=== PATIENT | male | born 1985 | race Two or more races ===

== ENCOUNTER 2019-07-05 12:55 | Inpatient (IN) | payer MEDICAID ==
[~2019-07-05] VITALS: Ht 170.2 cm; Wt 106.0 kg
[2019-07-05 14:03] LABS: Basophils # (auto) 0 uL; Basophils % (auto) 0.6 % (0.0-2.0); Eosinophils # (auto) 0.1 uL; Hematocrit 47.2 % (41.0-53.0); Hemoglobin 15.8 g/dL (13.5-17.5); Lymphocytes # (auto) 1.1 uL; Lymphocytes % (auto) 19.8 % (10.0-50.0); Mean Corpuscular Hemoglobin 29.1 pg (28.0-32.0); Mean Corpuscular Hgb Conc. 33.5 g/dL (32.0-36.0); Mean Corpuscular Volume 86.8 fL (80.0-100.0); Monocytes # (auto) 0.5 uL; Monocytes % (auto) 8.6 % (0.0-12.0); Neutrophils # (auto) 3.9 uL; Platelet Count (auto) 251 10^3/uL (140-450); Red Blood Cells 5.43 10^6/uL (4.5-5.90); Red Cell Distribution Width 13.5 % (11.8-14.3); White Blood Cell 5.6 10^3/uL (4.4-10.8)
[2019-07-05 14:21] LABS: Alanine Aminotransferase 52 U/L (16-61); Anion Gap 10 (5-15); Aspartate Aminotransferase 31 U/L (15-37); BUN/Creatinine Ratio 14.3; Blood Urea Nitrogen 14 mg/dL (7-18); Calcium 8.9 mg/dL (8.5-10.1); Carbon Dioxide 26 mmol/L (21-32); Chloride 103 mmol/L (98-107); GFR African American 113 mL/min; GFR Non-African American 94 mL/min; Glucose 93 mg/dL (74-106); Potassium 4.1 mmol/L (3.5-5.1); Sodium 139 mmol/L (136-145)
[2019-07-05 14:28] LABS: Alkaline Phosphatase 66 U/L (45-117); Bilirubin, Total 0.5 mg/dL (0.2-1.0); Total Protein 8.2 g/dL (6.4-8.2)
[2019-07-05 17:48] LABS: Urine Bacteria NONE SEEN /hpf (None Seen); Urine Blood 1+ /uL (Negative); Urine Hyaline Cast FEW /lpf (0 - 2); Urine Mucus FEW (None Seen); Urine WBC 1 /hpf (0 - 3)
[2019-07-05 18:01] LABS: Alcohol, Urine < 3.0 mg/dL (0-5); Amphetamine Screen, Urine NEGATIVE (NEGATIVE); Barbiturate Scree,Urine NEGATIVE (NEGATIVE); Benzodiazephine Screen, Urine NEGATIVE (NEGATIVE); Cannabinoid Screen, Urine NEGATIVE (NEGATIVE); Cocaine Screen, Urine NEGATIVE (NEGATIVE); Opiate Scree,Urine NEGATIVE (NEGATIVE); Phencyclidine Screen, Urine NEGATIVE (NEGATIVE)
[2019-07-05] MEDS ORDERED: ASPirin 81 mg TAB PO ONE (19:45)
[2019-07-05] MEDS ORDERED: ACETAMINOPHEN 325 MG TAB PO PRN (22:00)
[2019-07-05] MEDS ORDERED: TEMAZEPAM 15 MG CAP PO PRN (22:00)
[2019-07-05] MEDS ORDERED: ONDANSETRON HCL 4 MG/2 ML VIAL IV PRN (22:00)
[2019-07-05] MEDS ORDERED: MORPHINE SULF INJ 2 MG/ML SYRINGE 1ML IV PRN (22:15)
[2019-07-05] MEDS ORDERED: NITROGLYCERIN 0.4 MG SL TAB SL PRN (22:15)
[2019-07-05 22:23] LABS: INR 1.05 (0.9-1.15); Partial Thromboplastin Time 25.9 sec (23.64-32.05)
[2019-07-05 22:46] LABS: Cholesterol 187 mg/dL (< 200); HDL Cholesterol 65 mg/dL (40-59); LDL Cholesterol 91 mg/dL (< 100); Triglycerides 219 mg/dL (< 150)
[2019-07-05 23:00] VITALS: BP 128/75
--- NOTE | 2019-07-05 23:00 | NUR ---
Telemetry admit from ER ERNIE MACIEL admitted to Telemetry unit. Patient oriented to ROLF DEL CID RN primary RN, unit, room, bed, and unit policies regarding patient care and visiting hours. Patient now on continuous telemetry monitoring, tele box #16 and telemetry reading on arrival to unit is Sinus rhythm at 98bpm. Weighed by bedscale and encouraged to call if they need something. All questions and concerns addressed, patient verbalized understanding.
[2019-07-05] MEDS: FAMOTIDINE 20 MG TAB PO SCH (23:35)
[2019-07-06] MEDS ORDERED: ALBUAER3 IN (00:11)
[2019-07-06 05:00] VITALS: BP 126/90
--- NOTE | 2019-07-06 07:19 | NUR ---
Endorsed care to day shift RN. Patient in bed asleep with no signs of distress.
[2019-07-06 07:53] LABS: Potassium 3.9 mmol/L (3.5-5.1)
[2019-07-06 07:56] LABS: BUN/Creatinine Ratio 21.7
[2019-07-06 08:00] VITALS: BP 131/86
--- NOTE | 2019-07-06 08:00 | NUR ---
Opening Shift Note Assumed care of patient, awake, alert and orientedx4. No S/S of distress/SOB. No c/o chest pain. Patient states " i have been feeling palpitations, but no pain and no dizziness". Bed at lowest locked position and call light within reach. Instructed on POC and to call for assist PRN, will continue to monitor for changes Q1hr and PRN.
[2019-07-06 09:00] VITALS: BP 131/86
[2019-07-06] MEDS: FAMOTIDINE 20 MG TAB PO SCH ×2 (09:04→22:15)
[2019-07-06] MEDS: ASPirin 81 mg TAB PO SCH (09:05)
[2019-07-06 13:00] VITALS: BP 148/91
[2019-07-06] MEDS: METOPROLOL TARTRATE 25 MG TAB PO SCH ×2 (13:48→22:15)
--- NOTE | 2019-07-06 16:35 | NUR ---
Patient c/o mild headache, rates it 5/10. Will medicate per MD orders.
[2019-07-06 17:00] VITALS: BP 135/72
--- NOTE | 2019-07-06 18:37 | NUR ---
closing note Patient is comfortably sitting up in bed, no s/s of distress/sob noted/stated. Bed at lowest locked position, side rails up x2 and call light within reach. Will endorse care to NOC RN.
[2019-07-06 21:39] VITALS: BP 119/75
[2019-07-07 05:12] VITALS: BP 108/74
[2019-07-07 07:39] LABS: Potassium 4.9 mmol/L (3.5-5.1)
--- NOTE | 2019-07-07 07:45 | NUR ---
Opening Shift Note Assumed care of patient, awake and alert. No S/S of distress/SOB or pain. Bed at lowest locked position and call light within reach . Instructed on POC and to call for assist PRN, will continue to monitor for changes Q1hr and PRN.
[2019-07-07 07:47] LABS: Albumin 3.6 g/dL (3.4-5.0); BUN/Creatinine Ratio 17.8; Bilirubin, Total 0.6 mg/dL (0.2-1.0); Total Protein 7.4 g/dL (6.4-8.2)
[2019-07-07 08:00] VITALS: BP 126/69
[2019-07-07 09:00] VITALS: BP 126/69
[2019-07-07] MEDS: METOPROLOL TARTRATE 25 MG TAB PO SCH (09:52)
[2019-07-07] MEDS: ASPirin 81 mg TAB PO SCH (09:52)
[2019-07-07] MEDS: FAMOTIDINE 20 MG TAB PO SCH (09:52)
[2019-07-07 11:36] VITALS: BP 126/69
--- NOTE | 2019-07-07 12:04 | NUR ---
Discharge instructions given as ordered. Encourage to follow up with PMD as instructed. All questions and concerns addressed. Patient verbalized understanding. Medication reconciliation form completed and copy given to patient. IV removed with catheter intact, pressure dressing applied, Telemetry unit returned to ICU. Patient ambulated to vehicle with all personal belongings, accompanied by staff and family member. No distress noted at time of departure.
== END 2019-07-07 12:15 | disposition home or self-care (01) | DRG 201 ==
LOC: ER 13:02 → TELE-EAST 13:03
PROVIDERS: ADMIT Nurse Practitioner; ATTEND Internal Medicine
DX: I49.3 Ventricular premature depolarization (principal); E66.9 Obesity, unspecified; R94.6 Abnormal results of thyroid function studies; J45.909 Unspecified asthma, uncomplicated; Z82.49 Family history of ischemic heart disease and other diseases of the circulatory system; Z82.5 Family history of asthma and other chronic lower respiratory diseases; Z83.3 Family history of diabetes mellitus; Z88.0 Allergy status to penicillin; Z90.49 Acquired absence of other specified parts of digestive tract; Z68.36 Body mass index [BMI] 36.0-36.9, adult; Z79.899 Other long term (current) drug therapy
CPT/HCPCS: 36415; 71046; 80048; 80053; 80061; 80307; 81001; 83735; 83880; 84443; 84484; 85025; 85379; 85610; 85730; 93005; 93306; G0378

== ENCOUNTER 2023-04-20 11:04 | Inpatient (IN) | payer MEDICAID ==
[~2023-04-20] VITALS: Ht 175.3 cm; Wt 108.5 kg
[~2023-04-20 11:04] MED LIST: ALBUAER3 IN
[2023-04-20 11:55] LABS: Basophils # (auto) 0.1 10 ^3/uL (0-0.2); Eosinophils # (auto) 0 10 ^3/uL (0-0.8); Hemoglobin 15.8 g/dL (13.5-17.5); Mean Corpuscular Hgb Conc. 33.8 g/dL (32.0-36.0); Nucleated Red Blood Cells % 0.1 %
[2023-04-20 12:19] LABS: Basophils % (auto) 0.6 % (0.0-2.0); Eosinophils % (auto) 0.2 % (0.0-7.0); Hematocrit 46.8 % (41.0-53.0); Lymphocytes # (auto) 0.8 10 ^3/uL (0.4-5.4); Lymphocytes % (auto) 8.2 % (10.0-50.0); Mean Corpuscular Hemoglobin 30.3 pg (28.0-32.0); Mean Corpuscular Volume 89.7 fL (80.0-100.0); Monocytes % (auto) 11.1 % (0.0-12.0); Neutrophils # (auto) 7.5 10 ^3/uL (1.6-8.6); Neutrophils % (auto) 79.9 % (37.0-80.0); Red Blood Cells 5.21 10^6/uL (4.5-5.90); Red Cell Distribution Width 13.4 % (11.8-14.3); White Blood Cell 9.4 10^3/uL (4.4-10.8)
[2023-04-20 12:22] LABS: Alanine Aminotransferase 271 U/L (7-40); Albumin 4.7 g/dL (3.2-4.8); Alkaline Phosphatase 83 U/L (46-116); Anion Gap 14 (5-15); Aspartate Aminotransferase 187 U/L (13-40); BUN/Creatinine Ratio 7.6 (10.0-20.0); Bilirubin, Total 1.1 mg/dL (0.2-1.0); Blood Urea Nitrogen 7 mg/dL (9-23); Calcium 9.4 mg/dL (8.7-10.4); Carbon Dioxide 24 mmol/L (20-30); Chloride 98 mmol/L (98-107); Glucose 95 mg/dL (74-106); Lipase 47 U/L (12-53); Sodium 136 mmol/L (136-145); Total Protein 8.3 g/dL (5.7-8.2)
[2023-04-20] MEDS ORDERED: LORazepam 0.5 MG TAB PO ONE (13:15)
[2023-04-20] MEDS ORDERED: POTASSIUM EFFERVESENT TAB 25 MEQ PO ONE (17:15)
[2023-04-20] MEDS ORDERED: IBUPROFEN 600 MG TAB PO ONE (17:15)
[2023-04-20] MEDS ORDERED: levoFLOXacin 500MG 100 ML IV ONE (17:30)
[2023-04-20] MEDS ORDERED: metroNIDAZOLE 500MG/100ML 100 ML IV ONE (17:30)
[2023-04-20] MEDS ORDERED: HYDROcodone-ACET 5/325MG TAB PO PRN (17:45)
[2023-04-20] MEDS ORDERED: TEMAZEPAM 15 MG CAP PO PRN (17:45)
[2023-04-20] MEDS ORDERED: MORPHINE SULFATE INJ 2 MG/ml SYRG IV PRN (17:45)
[2023-04-20] MEDS ORDERED: NITROGLYCERIN 0.4 MG SL TAB SL PRN (17:45)
[2023-04-20] MEDS ORDERED: ACETAMINOPHEN 325 MG TAB PO PRN (17:45)
[2023-04-20] MEDS: metroNIDAZOLE 500MG/100ML 100 ML IV SCH (23:02)
[2023-04-20] MEDS: MORPHINE SULFATE INJ 2 MG/ml SYRG IV PRN (23:03)
[2023-04-20] MEDS: ONDANSETRON HCL 4 MG/2 ML VIAL IV PRN (23:03)
[2023-04-21] MEDS: SODIUM CHLORIDE 0.9% 1,000 ML IV SCH ×4 (00:04→19:04)
[2023-04-21] MEDS: ENOXAPARIN SOD 40 MG/0.4 ML SYRINGE SC SCH ×2 (00:12→13:11)
[2023-04-21] MEDS: MORPHINE SULFATE INJ 2 MG/ml SYRG IV PRN ×4 (03:26→20:37)
[2023-04-21] MEDS: ONDANSETRON HCL 4 MG/2 ML VIAL IV PRN ×3 (03:26→20:32)
[2023-04-21] MEDS ORDERED: IBUPROFEN 600 MG TAB PO PRN (03:30)
[2023-04-21 05:39] VITALS: O2SAT 98
[2023-04-21] MEDS: metroNIDAZOLE 500MG/100ML 100 ML IV SCH ×3 (06:09→22:15)
[2023-04-21 07:06] LABS: Basophils # (auto) 0 10 ^3/uL (0-0.2); Basophils % (auto) 0.3 % (0.0-2.0); Eosinophils # (auto) 0.1 10 ^3/uL (0-0.8); Eosinophils % (auto) 0.6 % (0.0-7.0); Hematocrit 42.4 % (41.0-53.0); Lymphocytes # (auto) 0.8 10 ^3/uL (0.4-5.4); Lymphocytes % (auto) 8.5 % (10.0-50.0); Mean Corpuscular Hemoglobin 30.1 pg (28.0-32.0); Mean Corpuscular Hgb Conc. 33.1 g/dL (32.0-36.0); Mean Corpuscular Volume 90.9 fL (80.0-100.0); Monocytes # (auto) 1.2 10 ^3/uL (0-1.3); Monocytes % (auto) 13.8 % (0.0-12.0); Neutrophils % (auto) 76.8 % (37.0-80.0); Red Blood Cells 4.66 10^6/uL (4.5-5.90); Red Cell Distribution Width 13.5 % (11.8-14.3); White Blood Cell 9.1 10^3/uL (4.4-10.8)
[2023-04-21 07:12] LABS: Alanine Aminotransferase 188 U/L (7-40); Albumin 4.4 g/dL (3.2-4.8); Alkaline Phosphatase 72 U/L (46-116); Anion Gap 10 (5-15); Aspartate Aminotransferase 99 U/L (13-40); BUN/Creatinine Ratio 12.2 (10.0-20.0); Bilirubin, Total 1.1 mg/dL (0.2-1.0); Blood Urea Nitrogen 11 mg/dL (9-23); Calcium 9.1 mg/dL (8.7-10.4); Carbon Dioxide 29 mmol/L (20-30); Chloride 100 mmol/L (98-107); Glucose 91 mg/dL (74-106); Potassium 3.2 mmol/L (3.5-5.1); Sodium 139 mmol/L (136-145)
[2023-04-21 08:00] VITALS: PULSE 78; RESP 15; O2SAT 92
[2023-04-21] MEDS ORDERED: HYDROcodone-ACET 5/325MG TAB PO PRN (09:30)
[2023-04-21] MEDS: levoFLOXacin 500MG 100 ML IV SCH (13:11)
[2023-04-21 17:09] LABS: Urine Bacteria NONE SEEN /hpf (None Seen); Urine Blood Negative /uL (Negative); Urine Clarity HAZY (Clear); Urine Color Yellow (Yellow); Urine Hyaline Cast FEW /lpf (0 - 2); Urine Mucus FEW (None Seen); Urine Protein, UAD 1+ (Negative); Urine Specific Gravity 1.027 (1.001-1.035); Urine WBC <1 /hpf (0 - 3)
[2023-04-21 17:25] LABS: Amphetamine Screen, Urine Neg (NEGATIVE); Barbiturate Scree,Urine Neg (NEGATIVE); Benzodiazephine Screen, Urine Neg (NEGATIVE); Cocaine Screen, Urine Neg (NEGATIVE); Opiate Scree,Urine Pos (NEGATIVE)
[2023-04-21 17:26] LABS: Cannabinoid Screen, Urine Neg (NEGATIVE); Phencyclidine Screen, Urine Neg (NEGATIVE)
[2023-04-21 20:00] VITALS: PULSE 86; RESP 12; O2SAT 94
[2023-04-22] MEDS: ONDANSETRON HCL 4 MG/2 ML VIAL IV PRN (01:55)
[2023-04-22] MEDS: MORPHINE SULFATE INJ 2 MG/ml SYRG IV PRN ×5 (02:04→21:16)
[2023-04-22] MEDS: metroNIDAZOLE 500MG/100ML 100 ML IV SCH ×3 (06:30→21:16)
[2023-04-22] MEDS: SODIUM CHLORIDE 0.9% 1,000 ML IV SCH ×3 (09:00→21:17)
[2023-04-22 09:50] VITALS: PULSE 81
[2023-04-22] MEDS: levoFLOXacin 500MG 100 ML IV SCH (10:36)
[2023-04-22] MEDS: ENOXAPARIN SOD 40 MG/0.4 ML SYRINGE SC SCH (10:36)
[2023-04-22 11:21] VITALS: PULSE 87; RESP 16; O2SAT 94
[2023-04-22 13:00] VITALS: BP 106/71; PULSE 82; RESP 18; TEMP 98.8; O2SAT 94
[2023-04-22 13:05] LABS: COVID19 ANTIGEN SOFIA FIA NEGATIVE (NEGATIVE)
[2023-04-22 17:00] VITALS: BP 115/73; PULSE 85; RESP 16; TEMP 98.6; O2SAT 96
[2023-04-22 20:00] VITALS: BP 108/77; PULSE 82; PULSE 83; PULSE 90; RESP 18; TEMP 98.6; O2SAT 97
[2023-04-22 22:00] VITALS: BP 108/77; PULSE 83; RESP 18; TEMP 98.6; O2SAT 97
[2023-04-23] MEDS: MORPHINE SULFATE INJ 2 MG/ml SYRG IV PRN ×3 (03:31→12:34)
[2023-04-23] MEDS: SODIUM CHLORIDE 0.9% 1,000 ML IV SCH ×2 (04:05→05:58)
[2023-04-23 05:00] VITALS: BP 117/80; PULSE 83; RESP 18; TEMP 98.5; O2SAT 96
[2023-04-23] MEDS: metroNIDAZOLE 500MG/100ML 100 ML IV SCH (05:10)
[2023-04-23 06:47] LABS: INR 1.14 (0.9-1.15); Partial Thromboplastin Time 30.1 SEC (24.5-34.5); Prothrombin Time 11.9 sec (9.3-11.8)
[2023-04-23 06:54] LABS: Alanine Aminotransferase 137 U/L (7-40); Alkaline Phosphatase 65 U/L (46-116); Anion Gap 9 (5-15); Calcium 8.3 mg/dL (8.5-10.1); Carbon Dioxide 28 mmol/L (20-30); Chloride 103 mmol/L (98-107); Glucose 98 mg/dL (74-106); Sodium 140 mmol/L (136-145)
[2023-04-23 06:55] LABS: Albumin 3.5 g/dL (3.2-4.8); Aspartate Aminotransferase 93 U/L (13-40)
[2023-04-23 06:56] LABS: Bilirubin, Total 1.4 mg/dL (0.2-1.0); Total Protein 6.3 g/dL (5.7-8.2)
[2023-04-23 07:25] LABS: BUN/Creatinine Ratio 6.7 (10.0-20.0); Blood Urea Nitrogen < 5 mg/dL (9-23)
[2023-04-23 07:27] LABS: Potassium 2.8 mmol/L (3.5-5.1)
[2023-04-23] MEDS ORDERED: POTASSIUM CHLORIDE 60 MEQ, LIDOCAINE 1% (LOCAL ANESTH.) 6 ML in SODIUM CHL 0.9% 500 ML IV ONE (07:45)
[2023-04-23 08:00] VITALS: PULSE 84; RESP 17; O2SAT 98
[2023-04-23] MEDS ORDERED: LIDOCAINE VISCOUS 2% 15ML UD ONE (08:05)
[2023-04-23] MEDS ORDERED: diphenhdrAMINE HCL 50 MG/1 ML VL ONE (08:06)
[2023-04-23] MEDS ORDERED: SODIUM CHLORIDE LOCK 10 ML ONE (08:06)
[2023-04-23] MEDS: levoFLOXacin 500MG 100 ML IV SCH (08:19)
[2023-04-23] MEDS: ENOXAPARIN SOD 40 MG/0.4 ML SYRINGE SC SCH (08:20)
[2023-04-23] MEDS: fentaNYL CITRATE 100 MCG/2 ML VL ONE ×2 (09:22→09:25)
[2023-04-23] MEDS: MIDAZOLAM HCL 5 MG/ML-1ML VIAL ONE ×3 (09:22→09:28)
[2023-04-23 09:35] VITALS: TEMP 98.1; O2SAT 95
[2023-04-23 09:40] LABS: Hepatitis B Core Total AB Negative (Negative)
[2023-04-23 10:05] VITALS: O2SAT 95
[2023-04-23] MEDS ORDERED: PANT40TA2 PO (11:09)
[2023-04-23] MEDS ORDERED: SUCR1TAB PO (11:09)
[2023-04-23] MEDS: SUCRALFATE 1 GM/10 ML ORAL SUSP PO SCH ×2 (11:30→16:42)
[2023-04-23 12:38] LABS: Hepatitis A Total Antibody Positive (Negative); Hepatitis B Surface Antibody Negative (Negative); Hepatitis B Surface Antigen Negative (Negative)
[2023-04-23 12:39] LABS: Hepatitis C Antibody Negative (Negative)
[2023-04-23 13:04] VITALS: BP 115/78; PULSE 80; RESP 17
== END 2023-04-23 18:10 | disposition home or self-care (01) | DRG 241 ==
LOC: ER 11:04 → TELE 17:34 → CENTRAL 04-22 09:46 → TELE-CENTR 04-22 09:48 → CENTRAL 04-22 23:54
PROVIDERS: ADMIT Nurse Practitioner; ATTEND Nurse Practitioner
PROC: 0DB68ZX Excision of Stomach, Via Natural or Artificial Opening Endoscopic, Diagnostic (ICD-10-PCS; 2023-04-23)
PROC: 0DB98ZX Excision of Duodenum, Via Natural or Artificial Opening Endoscopic, Diagnostic (ICD-10-PCS; principal; 2023-04-23 09:14)
DX: K29.70 Gastritis, unspecified, without bleeding (principal); K22.10 Ulcer of esophagus without bleeding; K29.80 Duodenitis without bleeding; K52.9 Noninfective gastroenteritis and colitis, unspecified; E11.9 Type 2 diabetes mellitus without complications; I10 Essential (primary) hypertension; Z88.0 Allergy status to penicillin; F41.9 Anxiety disorder, unspecified; J45.909 Unspecified asthma, uncomplicated; R74.8 Abnormal levels of other serum enzymes; R53.81 Other malaise; K31.9 Disease of stomach and duodenum, unspecified; Z20.822 Contact with and (suspected) exposure to COVID-19; K44.9 Diaphragmatic hernia without obstruction or gangrene; Z82.49 Family history of ischemic heart disease and other diseases of the circulatory system; Z82.5 Family history of asthma and other chronic lower respiratory diseases; Z83.3 Family history of diabetes mellitus; Z90.49 Acquired absence of other specified parts of digestive tract
CPT/HCPCS: 36415; 71045; 74176; 76705; 80053; 80307; 81001; 82728; 83605; 83690; 85025; 85610; 85730; 86704; 86706; 86708; 86803; 86850; 86900; 86901; 87040; 87045; 87340; 87426; 87427; G0378; J1956; J2001; J2250; J2405; J3490

== ENCOUNTER 2023-11-12 17:46 | Emergency (ER) | payer MEDICAID ==
[~2023-11-12] VITALS: Ht 175.3 cm; Wt 109.1 kg
[~2023-11-12 17:46] MED LIST changes: +PANT40TA2 PO; +SUCR1TAB PO
[2023-11-12 18:02] VITALS: BP 125/99; PULSE 92; RESP 16; O2SAT 98
[2023-11-12] MEDS ORDERED: HYDR-4902 PO (22:21)
[2023-11-13] MEDS: LIDOCAINE 1% HCL (LOCAL ANESTH.) INJ 20ML MDV ID ONE (00:52)
[2023-11-13] MEDS: ONDANSETRON ODT 4 MG TAB PO ONE (00:52)
[2023-11-13] MEDS: LIDOCAINE 1% HCL (LOCAL ANESTH.) INJ 20ML MDV ONE (00:52)
[2023-11-13] MEDS: HYDROcodone-ACET 5/325MG TAB PO ONE (00:52)
== END 2023-11-13 00:52 | disposition home or self-care (01) ==
LOC: ER 17:46
DX: S61.200A Unspecified open wound of right index finger without damage to nail, initial encounter (principal); I10 Essential (primary) hypertension; F41.9 Anxiety disorder, unspecified; Z98.890 Other specified postprocedural states; Z88.0 Allergy status to penicillin; Z79.899 Other long term (current) drug therapy; W31.89XA Contact with other specified machinery, initial encounter; Y93.89 Activity, other specified; Y92.89 Other specified places as the place of occurrence of the external cause; Y99.8 Other external cause status
CPT/HCPCS: 73130; J2001; Q0162

== ENCOUNTER 2024-02-07 13:18 | Inpatient (IN) | payer MEDICAID ==
[~2024-02-07] VITALS: Ht 177.8 cm; Wt 100.2 kg
[~2024-02-07 13:18] MED LIST changes: +HYDR-4902 PO
[2024-02-07 13:51] LABS: Basophils # (auto) 0 10 ^3/uL (0-0.2); Basophils % (auto) 0.7 % (0.0-2.0); Eosinophils # (auto) 0 10 ^3/uL (0-0.8); Eosinophils % (auto) 0.4 % (0.0-7.0); Hematocrit 43.5 % (41.0-53.0); Lymphocytes # (auto) 0.8 10 ^3/uL (0.4-5.4); Lymphocytes % (auto) 12.1 % (10.0-50.0); Mean Corpuscular Hemoglobin 30.2 pg (28.0-32.0); Mean Corpuscular Hgb Conc. 34.5 g/dL (32.0-36.0); Mean Corpuscular Volume 87.5 fL (80.0-100.0); Monocytes # (auto) 0.5 10 ^3/uL (0-1.3); Monocytes % (auto) 7.5 % (0.0-12.0); Neutrophils # (auto) 5.5 10 ^3/uL (1.6-8.6); Neutrophils % (auto) 79.3 % (37.0-80.0); Red Blood Cells 4.96 10^6/uL (4.5-5.90); Red Cell Distribution Width 14.8 % (11.8-14.3); White Blood Cell 6.9 10^3/uL (4.4-10.8)
[2024-02-07 14:18] LABS: Alanine Aminotransferase 54 U/L (7-40); Albumin 4.5 g/dL (3.2-4.8); Alkaline Phosphatase 68 U/L (46-116); Anion Gap 14 (5-15); Aspartate Aminotransferase 93 U/L (13-40); Bilirubin, Total 1.4 mg/dL (0.2-1.0); Calcium 9.2 mg/dL (8.7-10.4); Carbon Dioxide 28 mmol/L (20-30); Chloride 97 mmol/L (98-107); Glucose 93 mg/dL (74-106); Potassium 2.7 mmol/L (3.5-5.1); Sodium 139 mmol/L (136-145); Total Protein 7.7 g/dL (5.7-8.2)
[2024-02-07 14:21] LABS: BUN/Creatinine Ratio 7.2 (10.0-20.0); Blood Urea Nitrogen < 5 mg/dL (9-23)
[2024-02-07] MEDS: POTASSIUM CHL 20 Meq TABLET PO ONE ×2 (15:36→21:16)
[2024-02-07] MEDS: SODIUM CHLORIDE 0.9% 1,000 ML IV ONE (15:36)
[2024-02-07] MEDS: LORazepam 2MG/ML-1ML VIAL IV ONE (15:39)
[2024-02-07] MEDS: POTASSIUM CHL 20MEQ/100ML 100 ML IV ONE (15:39)
[2024-02-07 15:45] VITALS: PULSE 86; RESP 17; O2SAT 99
[2024-02-07 18:57] LABS: Urine Bacteria None Seen /hpf (None Seen)
[2024-02-07 19:29] LABS: Urine Blood TRACE /uL (Negative); Urine Clarity Clear (Clear); Urine Color Light-Yellow (Yellow); Urine Mucus FEW (None Seen); Urine Protein, UAD Negative (Negative); Urine Specific Gravity 1.013 (1.001-1.035); Urine Urobilinogen Normal (Negative); Urine WBC 1 /hpf (0 - 3); Urine pH 6.5 (5.0-9.0)
[2024-02-07 19:30] VITALS: PULSE 102; RESP 19; O2SAT 97
[2024-02-07 19:54] LABS: Basophils # (auto) 0 10 ^3/uL (0-0.2); Basophils % (auto) 0.3 % (0.0-2.0); Eosinophils # (auto) 0 10 ^3/uL (0-0.8); Eosinophils % (auto) 0.2 % (0.0-7.0); Hematocrit 39.2 % (41.0-53.0); Hemoglobin 13.5 g/dL (13.5-17.5); Lymphocytes # (auto) 0.6 10 ^3/uL (0.4-5.4); Lymphocytes % (auto) 7.9 % (10.0-50.0); Mean Corpuscular Hemoglobin 30.5 pg (28.0-32.0); Mean Corpuscular Hgb Conc. 34.4 g/dL (32.0-36.0); Mean Corpuscular Volume 88.7 fL (80.0-100.0); Monocytes # (auto) 0.4 10 ^3/uL (0-1.3); Neutrophils # (auto) 6.6 10 ^3/uL (1.6-8.6); Neutrophils % (auto) 86.6 % (37.0-80.0); Red Blood Cells 4.42 10^6/uL (4.5-5.90); White Blood Cell 7.6 10^3/uL (4.4-10.8)
[2024-02-07 20:02] LABS: Chloride 98 mmol/L (98-107); Potassium 2.8 mmol/L (3.5-5.1); Sodium 136 mmol/L (136-145)
[2024-02-07 20:03] LABS: Anion Gap 12 (5-15); Carbon Dioxide 26 mmol/L (20-30)
[2024-02-07 20:04] LABS: Calcium 8.3 mg/dL (8.7-10.4)
[2024-02-07 20:08] LABS: Glucose 135 mg/dL (74-106)
[2024-02-07 20:11] LABS: BUN/Creatinine Ratio 7.1 (10.0-20.0); Blood Urea Nitrogen < 5 mg/dL (9-23)
[2024-02-07] MEDS: POTASSIUM CHL 20MEQ/100ML 50 ML IV ONE (23:24)
[2024-02-07] MEDS: chlordiazePOXIDE HCL 25 MG CAP PO ONE (23:56)
[2024-02-07 23:59] VITALS: BP 152/95; PULSE 89; RESP 14; TEMP 99.3; O2SAT 96
[2024-02-08] VITALS (11 sets, daily range): BP systolic 115–147; BP diastolic 70–98; PULSE 73–104; RESP 15–19; TEMP 97.4–99.1; O2SAT 95–98
[2024-02-08] MEDS ORDERED: ALBUTEROL SULF 2.5 MG/0.5ML(0.5%) NEB SOLN NEB PRN
[2024-02-08] MEDS ORDERED: hydrALAZINE HCL 20 MG/ML VL IV PRN
[2024-02-08] MEDS ORDERED: IBUPROFEN 600 MG TAB PO PRN
[2024-02-08] MEDS ORDERED: MORPHINE SULFATE INJ 2 MG/ml SYRG IV PRN
[2024-02-08] MEDS ORDERED: ONDANSETRON HCL 4 MG/2 ML VIAL IV PRN
[2024-02-08] MEDS ORDERED: DOCUSATE SOD 100 MG CAP PO PRN
[2024-02-08] MEDS ORDERED: NITROGLYCERIN 0.4 MG SL TAB SL PRN
[2024-02-08] MEDS: LORazepam 2MG/ML-1ML VIAL IV ONE
[2024-02-08] MEDS: SODIUM CHLORIDE 0.9% 1,000 ML IV SCH (00:18)
[2024-02-08 05:05] LABS: Basophils # (auto) 0 10 ^3/uL (0-0.2); Basophils % (auto) 0.5 % (0.0-2.0); Eosinophils # (auto) 0.1 10 ^3/uL (0-0.8); Eosinophils % (auto) 1.7 % (0.0-7.0); Hematocrit 41.6 % (41.0-53.0); Hemoglobin 14.1 g/dL (13.5-17.5); Lymphocytes # (auto) 0.9 10 ^3/uL (0.4-5.4); Lymphocytes % (auto) 18.8 % (10.0-50.0); Mean Corpuscular Hemoglobin 30.1 pg (28.0-32.0); Mean Corpuscular Hgb Conc. 33.9 g/dL (32.0-36.0); Mean Corpuscular Volume 88.6 fL (80.0-100.0); Monocytes # (auto) 0.4 10 ^3/uL (0-1.3); Monocytes % (auto) 7.7 % (0.0-12.0); Neutrophils # (auto) 3.4 10 ^3/uL (1.6-8.6); Neutrophils % (auto) 71.3 % (37.0-80.0); Red Cell Distribution Width 14.5 % (11.8-14.3); White Blood Cell 4.8 10^3/uL (4.4-10.8)
[2024-02-08 05:25] LABS: Alkaline Phosphatase 58 U/L (46-116); Anion Gap 8 (5-15); Aspartate Aminotransferase 59 U/L (13-40); Bilirubin, Total 2.2 mg/dL (0.2-1.0); Calcium 8.7 mg/dL (8.7-10.4); Carbon Dioxide 32 mmol/L (20-30); Chloride 98 mmol/L (98-107); Glucose 117 mg/dL (74-106); Potassium 2.9 mmol/L (3.5-5.1); Sodium 138 mmol/L (136-145); Total Protein 6.9 g/dL (5.7-8.2)
[2024-02-08 05:29] LABS: Blood Urea Nitrogen < 5 mg/dL (9-23)
[2024-02-08 06:10] LABS: Alanine Aminotransferase 42 U/L (7-40)
[2024-02-08] MEDS ORDERED: LABETALOL HCL 20 MG/4 ML VL IV PRN (09:00)
[2024-02-08] MEDS: ASPirin 81 mg TAB PO SCH (09:58)
[2024-02-08] MEDS: POTASSIUM EFFERVESENT TAB 25 MEQ PO ONE (09:58)
[2024-02-08] MEDS ORDERED: FAMOTIDINE (10MG/ML) 2ML VL IV SCH (10:00)
[2024-02-08] MEDS: METOPROLOL SUCCINATE XL 50 MG TAB PO ONE (10:02)
[2024-02-08] MEDS: POTASSIUM CHL 20MEQ/100ML 100 ML IV ONE (10:04)
[2024-02-08] MEDS: FAMOTIDINE (10MG/ML) 2ML VL IV SCH ×2 (10:07→10:23)
[2024-02-08 11:12] LABS: Amphetamine Screen, Urine Neg (NEGATIVE); Barbiturate Scree,Urine Neg (NEGATIVE); Benzodiazephine Screen, Urine Neg (NEGATIVE); Cocaine Screen, Urine Neg (NEGATIVE); Opiate Scree,Urine Neg (NEGATIVE)
[2024-02-08 11:13] LABS: Cannabinoid Screen, Urine Neg (NEGATIVE); Phencyclidine Screen, Urine Neg (NEGATIVE)
[2024-02-08 12:08] LABS: Triglycerides 104 mg/dL (< 150)
[2024-02-08 12:09] LABS: LDL Cholesterol 146 mg/dL (< 100)
[2024-02-08 12:10] LABS: Cholesterol 257 mg/dL (< 200); HDL Cholesterol 95 mg/dL (40-59)
[2024-02-08] MEDS: HYDROcodone-ACET 5/325MG TAB PO PRN (14:29)
[2024-02-08] MEDS: MAGNESIUM SULFATE 1GM/100ML 100 ML IV SCH (15:32)
[2024-02-08] MEDS: ATORVASTATIN 20 MG TAB PO SCH (22:13)
[2024-02-08] MEDS: LORazepam 2MG/ML-1ML VIAL IV PRN (22:19)
[2024-02-09] VITALS (7 sets, daily range): BP systolic 118–140; BP diastolic 71–99; PULSE 69–95; RESP 16–20; TEMP 98–99; O2SAT 91–99
[2024-02-09 07:48] LABS: Calcium 9.1 mg/dL (8.7-10.4); Chloride 103 mmol/L (98-107); Potassium 3.2 mmol/L (3.5-5.1); Sodium 139 mmol/L (136-145)
[2024-02-09 07:49] LABS: Anion Gap 6 (5-15); Carbon Dioxide 30 mmol/L (20-30)
[2024-02-09 07:54] LABS: BUN/Creatinine Ratio 7.2 (10.0-20.0); Blood Urea Nitrogen 5 mg/dL (9-23); Glucose 102 mg/dL (74-106)
[2024-02-09 07:55] LABS: Magnesium 1.8 mg/dL (1.6-2.6)
[2024-02-09] MEDS: MORPHINE SULFATE INJ 2 MG/ml SYRG IV PRN (09:30)
[2024-02-09] MEDS: POTASSIUM EFFERVESENT TAB 25 MEQ PO ONE (09:48)
[2024-02-09] MEDS: ERGOCALCIFEROL 50,000 UNIT(1.25MG) CAP PO SCH (09:49)
[2024-02-09] MEDS: METOPROLOL SUCCINATE XL 50 MG TAB PO SCH (09:52)
[2024-02-09] MEDS: MAGNESIUM OXIDE 400 MG TAB PO SCH (09:52)
[2024-02-09] MEDS ORDERED: METO25TA93 PO (13:37)
== END 2024-02-09 17:20 | disposition home or self-care (01) | DRG 425 ==
LOC: ER 13:18 → TELE-CENTR 23:54 → TELE 23:54 → TELE-CENTR 02-08 02:31
PROVIDERS: ADMIT Internal Medicine Geriatric Medicine; ATTEND Internal Medicine Geriatric Medicine
DX: E87.6 Hypokalemia (principal); E66.9 Obesity, unspecified; I49.3 Ventricular premature depolarization; I10 Essential (primary) hypertension; E83.42 Hypomagnesemia; J45.909 Unspecified asthma, uncomplicated; F10.10 Alcohol abuse, uncomplicated; Y90.9 Presence of alcohol in blood, level not specified; Z82.49 Family history of ischemic heart disease and other diseases of the circulatory system; Z82.5 Family history of asthma and other chronic lower respiratory diseases; Z83.3 Family history of diabetes mellitus; Z88.0 Allergy status to penicillin; Z79.51 Long term (current) use of inhaled steroids; Z79.899 Other long term (current) drug therapy; Z90.49 Acquired absence of other specified parts of digestive tract; Z68.31 Body mass index [BMI] 31.0-31.9, adult
CPT/HCPCS: 36415; 71045; 80048; 80053; 80061; 80307; 80320; 81001; 82306; 82607; 83036; 83735; 84132; 84443; 84484; 85025; 93005; 93306; G0378; J3480; J3490

== ENCOUNTER 2025-01-16 14:49 | Emergency (ER) | payer MEDICAID ==
[~2025-01-16] VITALS: Ht 175.3 cm; Wt 96.7 kg
[~2025-01-16 14:49] MED LIST changes: +METO25TA93 PO; -PANT40TA2 PO; -SUCR1TAB PO
--- NOTE | 2025-01-16 15:10 | ED.PDOC ---
Itzel. trauma (HPI) HPI Comments A 39 YEAR OLD MALE PRESENTS TO THE ED WITH COMPLAINT OF HEADACHE S/P FALL. PATIENT STATES HE ACCIDENTALLY TRIPPED AND FELL AT ABOUT 1000 TODAY AND HIT HIS HEAD ON A TABLE. PATIENT REPORTS HE IS NOW EXPERIENCING A HEADACHE AND DIZZINESS. PATIENT NOTES HE ALSO HAS A HISTORY OF HEART PALPITATIONS WITH TACHYCARDIA AND ANXIETY AND NOTES HE TAKES METOPROLOL TO MANAGE THIS PROBLEM, BUT NOTES ONLY ATIVAN OR XANAX HELPS WITH HIS TACHYCARDIA. FALL AGGRAVATED HIS ANXIETY. PATIENT DENIES VISION CHANGES, LOC, NECK INJURY, FEVER, CHILLS, SHORTNESS OF BREATH, CHEST PAIN, ABDOMINAL PAIN, NAUSEA, VOMITING, OR OTHER COMPLAINTS. NO OTHER SYMPTOMS OR MODIFYING FACTORS AT THIS TIME. PATIENT IS ALERT, ORIENTED X 4, AND HAS STEADY GAIT. Time Seen by MD: 14:51 Primary Care Provider: ? Reviewed notes: Nurses Notes, Medications, Allergies Allergies: Coded Allergies: Penicillins (Verified Allergy, Unknown, 07/05/19) Home Meds Active Scripts Lorazepam (Lorazepam) 1 Mg Tab, 1 TAB PO BID, #12 TAB Prov:CARRILLO GIBSON 01/16/25 Metoprolol Succinate (Metoprolol Succinate Er) 25 Mg Tab, 1 TAB PO DAILY, #30 TAB 5 Refills Prov:MARIO MAHAJAN MD 02/09/24 Hydrocodone-Acetaminophen (Hydrocodone Bitartrate/AC 5-325 mg) 1 Tab Tab, 1 TAB PO TID PRN, #30 TAB Prov:MALCOLM CREWS 11/12/23 Reported Medications Albuterol Sulfate (VENTOLIN MDI) 90 Mcg Ih, 90 MCG IN, INH 07/06/19 Information Source: Patient Mode of Arrival: Ambulatory Severity: Moderate Timing: Hours Duration: Since onset, Hours Prehospital treatment: None Location: Head Location of laceration: None Mechanism: Fall Associated signs and symtoms: Headache Past Medical History PAST MEDICAL HISTORY: Anxiety, Asthma, HTN Past Medical History (Other): HEART PALPITATIONS, TACHYCARDIA Surgical History: Appendectomy Family History Family History: Reviewed,noncontributory to illness, Family hx of heart flory, Family hx of HTN Social History Smoker: Non-Smoker Alcohol: Rarely Drugs: Denies Drug Use Lives In: Home Constitutional: reports: others (ANXIETY ); denies: chills, diaphoresis, fatigue, fever, malaise, sweats, weakness EENTM: denies: blurred vision, double vision, ear bleeding, ear discharge, ear drainage, ear pain, ear ringing, eye pain, eye redness, hearing loss, mouth pain, mouth swelling, nasal discharge, nose bleeding, nose congestion, nose pain, photophobia, tearing, throat pain, throat swelling, voice changes, others Respiratory: denies: cough, hemoptysis, orthopnea, SOB at rest, shortness of breath, SOB with excertion, stridor, wheezing, others Cardiovascular: denies: chest pain, dizzy spells, diaphoresis, Dyspnea on exertion, edema, irregular heart beat, left arm pain, lightheadedness, palpitations, PND, syncope, others Gastrointestinal: denies: abdomen distended, abdominal pain, blood streaked bowels, constipated, diarrhea, dysphagia, difficulty swallowing, hematemesis, melena, nausea, poor appetite, poor fluid intake, rectal bleeding, rectal pain, vomiting, others Genitourinary: denies: burning, dysuria, flank pain, frequency, hematuria, incontinence, penile discharge, penile sore, pain, testicle pain, testicle swelling, urgency, others Neurological: reports: headache; denies: dizziness, fainting, left sided numbness, left sided weakness, numbness, paresthesia, pre-existing deficit, right sided numbness, right sided weakness, seizure, speech problems, tingling, tremors, weakness, others Musculoskeletal: denies: back pain, gout, joint pain, joint swelling, muscle pain, muscle stiffness, neck pain, others Integumetry: denies: bruises, change in color, change in hair/nails, dryness, laceration, lesions, lumps, rash, wounds, others Allergic/Immunocompromised: denies: Difficulty Healing, Frequent Infections, Hives, Itching, others Hematologic/Lymphatic: denies: anemia, blood clots, easy bleeding, easy bruising, swollen glands, others Endocrine: denies: excessive hunger, excessive sweating, excessive thirst, excessive urination, flushing, intolerance to cold, intolerance to heat, unexplained weight gain, unexplained weight loss, others Psychiatric: reports: anxiety; denies: bipolar disorder, depression, hopeless, panic disorder, schizophrenia, sleepless, suicidal, others All Other Systems: Reviewed and Negative Physical Exam General Appearance: Moderate Distress, Obese HEENT: Head (NO CONTUSIONS AND HEMATOMAS ON SCALP, NO SCALP DEFORMITY. ), Normal ENT Inspection, PERRL/EOMI, Pharynx Normal, TMs Normal Neck: Full Range of Motion, Non-Tender, Normal, Normal Inspection Respiratory: Chest Non-Tender, Lungs Clear, No Accessory Muscle Use, No Respiratory Distress, Normal Breath Sounds Cardiovascular: No Edema, No JVD, No Murmur, No Gallop, Normal Peripheral Pulses, Regular Rate/Rhythm Breast Exam: Deferred Gastrointestinal: No Organomegaly, Non Tender, No Pulsatile Mass, Normal Bowel Sounds, Soft Genitalia: Deferred Pelvic: Deferred Rectal: Deferred Extremities: No calf tenderness, Normal capillary refill, Normal inspection, Normal range of motion, Non-tender, No pedal edema Musculoskeletal : Apperance: Normal Neurologic: Alert, tool setter II-XII nml as Tested, No Motor Deficits, Normal Affect, Normal Mood, No Sensory Deficits Cerebellar Function: Normal Reflexes: Normal Skin: Dry, Normal Color, Warm Peripheral Pulses: 2+ carotid (R), 2+ carotid (L) Lymphatic: No Adenopathy Was a procedure done? Was a procedure done?: No EKG EKG : Pulse Rate (adult): 125 [place]: Normal Block: None Hypertrophy: None ST: Normal Comments SINUS TACHYCARDIA Differential Diagnosis Multiple Trauma: Closed Head Injury, Fractures, Cerebral Contusion, Abrasions, Contusion, Hematoma Neck Injury: N/A X-Ray, Labs, Meds, VS Vital Signs Date Time Temp Pulse Resp B/P (MAP) Pulse Ox O2 Delivery O2 Flow Rate FiO2 01/16/25 16:13 98.5 105 20 133/92 (106) 94 98.5 01/16/25 15:36 99.3 117 20 133/93 (106) 94 99.3 01/16/25 15:36 117 20 94 Room Air 01/16/25 15:13 125 01/16/25 15:09 98.7 135 18 132/66 (88) 97 98.7 Lab Test 01/16/25 15:07 Range/Units POC Glucose 151 H 70-106 mg/dl Current Medications Medications (Trade) Dose Ordered Sig/Alayna Route Start Time Stop Time Status Last Admin Lorazepam (Ativan Tablet) 2 mg ONCE ONCE PO 01/16/25 15:15 01/16/25 15:16 DC 01/16/25 15:34 Procedure: CT HEAD WITHOUT CONTRAST Study Date and Requested Time: 01/16/2025 03:17 PM History: FALL Comparison: None Dose: CTDI: 66.47 mGy DLP: 1176.1 mGycm Technique: Multiplanar images obtained through the brain without intravenous contrast. Findings: Normal brain volume and formation. No hemorrhages, masses, mass effect, midline shift, herniation or cytotoxic edema following a large vascular territory. No intra-axial or extra-axial fluid collections. No evidence of hydrocephalus. The basal cisterns are patent. The pituitary gland, sella and parasellar regions are unremarkable. The cerebellar tonsils are in normal position. The cerebellum is unremarkable. The orbits and globes are unremarkable. Mild mucoperiosteal thickening of the ethmoid air cells. Otherwise, the paranasal sinuses and mastoids are clear. There are no worrisome calvarial lesions. Impression: No evidence of acute intracranial abnormality. ATED BY: MEENA STEWARD DO DICTATED DATE/TIME: 01/16/25 1558 SIGNED BY: MEENA STEWARD DO SIGNED DATE/TIME: 01/16/251557 CC: X-Ray, Labs, Meds, VS Comment EXTERNAL MEDICAL RECORDS REVIEWED: [NONE] INDEPENDENT HISTORIANS: [NONE] SOCIAL DETERMINANTS OF HEALTH: [NONE] LABS ORDERED: NONE REVIEWED AND INTERPRETED RESULTS: NONE IMAGING ORDERED: CT BRAIN TREATMENTS ORDERED: ATIVAN 2MG PO. PT STATES HE FEELS MUCH BETTER AND HR DECREASED AND HEADACHE WENT AWAY. PROCEDURES PERFORMED: NONE CRITICAL CARE TIME: NONE I HAVE DISCUSSED THE PATIENT WITH THE ATTENDING PHYSICIAN DR. BAUTISTA AND HE AGREES WITH THE PATIENT'S PLAN OF CARE AND DISPOSITION. BASED ON HISTORY OF PRESENT ILLNESS, AND PHYSICAL EXAM, PATIENT WILL BE DISCHARGED HOME. DISCUSSED PLAN FOR DISCHARGE HOME WITH RX [ATIVAN 1MG *]. MEDICATION WARNINGS GIVEN. SHARED DECISION MAKING: PATIENT INSTRUCTED TO FOLLOW UP WITH PRIMARY CARE PROVIDER IN 1-2 DAYS FOR RE-EVALUATION OF SYMPTOMS. PATIENT VERBALIZES UNDERSTANDING TO RETURN TO ED FOR NEW OR WORSENING SYMPTOMS OR IF FOLLOW UP WITH PCP CANNOT BE OBTAINED. PATIENT FEELS COMFORTABLE GOING HOME AT THIS TIME. ALL QUESTIONS ADDRESSED AT TIME OF DISCHARGE. Images Reviewed?: Images reviewed and evaluated by me Time of 1ST Reevaluation: 16:30 Reevaluation 1ST: Improved Patient Education/Counseling: Diagnosis, Treatment, Need For Follow Up Family Education/Counseling: Diagnosis, Treatment, Need For Follow Up Medical Screening: No EMC Exist At This Time Departure 1 Departure Time of Disposition: 16:30 Impression: Primary Impression: Acute headache Qualified Codes: G44.319 - Acute post-traumatic headache, not intractable Additional Impressions: Status post fall Chronic tachycardia Anxiety reaction Disposition: HOME / SELF CARE / HOMELESS Condition: Stable Additional Instructions: FOLLOW-UP WITH PCP IN 1 TO 2 DAYS. TAKE MEDICATIONS PRESCRIBED. RETURN TO ED FOR ANY NEW OR WORSENING SYMPTOMS. e-Prescriptions Lorazepam (Lorazepam) 1 Mg Tab 1 TAB PO BID, #12 TAB Prov: CARRILLO GIBSON 01/16/25 Discharged With: Self, Relative Critical Care Note Critical Care Time?: No Stability Stability form required: No I personally scribed for CARRILLO GIBSON ([email or web address]) on 01/16/25 at 15:09. Electronically submitted by Vladislav Jones ([employer] I personally scribed for CARRILLO GIBSON ([email or web address]) on 01/16/25 at 15:13. Electronically submitted by Vladislav Jones ([employer] I personally scribed for CARRILLO GIBSON ([email or web address]) on 01/16/25 at 15:20. Electronically submitted by Vladislav Jones ([employer] I personally scribed for CARRILLO GIBSON ([email or web address]) on 01/16/25 at 16:10. Electronically submitted by Vladislav Jones ([employer] CARRILLO GIBSON Jan 16, 2025 15:09
[2025-01-16] MEDS: LORazepam 0.5 MG TAB PO ONE (15:34)
--- NOTE | 2025-01-16 16:00 | DVH ---
Procedure: CT HEAD WITHOUT CONTRAST Study Date and Requested Time: 01/16/2025 03:17 PM History: FALL Comparison: None Dose: CTDI: 66.47 mGy DLP: 1176.1 mGycm Technique: Multiplanar images obtained through the brain without intravenous contrast. Findings: Normal brain volume and formation. No hemorrhages, masses, mass effect, midline shift, herniation or cytotoxic edema following a large v ascular territory. No intra-axial or extra-axial fluid collections. No evidence of hydrocephalus. The basal cisterns are patent. The pituitary gland, sella and parasellar regions are unremarkable. The cerebellar tonsils are in nor mal position. The cerebellum is unremarkable. The orbits and globes are unremarkable. Mild mucoperiosteal thickening of the ethmoid air cells. Oth erwise, the paranasal sinuses and mastoids are clear. There are no worrisome calvarial lesions. Impression: No evidence of acute intracranial abnormality.
[2025-01-16 16:13] VITALS: BP 133/92; RESP 20; TEMP 98.5; O2SAT 94
[2025-01-16] MEDS ORDERED: LORA-1123 PO (16:16)
[2025-01-16 16:20] VITALS: PULSE 125
--- NOTE | 2025-01-19 16:11 | ECG ---
[facility] Test Date: 2025-01-16 Test Time: 15:13:57 Pat Name: ERNIE MACIEL Department: ER Room: Gender: [employer] Supervisor: SHAYY : 1985 Requested By: CARRILLO GIBSON Order Number: [id number] Reading MD: Kimani Pitts Measurements Intervals [place] Rate: 125 P: 57 CO: 136 QRS: 47 QRSD: 76 T: 35 QT: 302 QTc: 436 Interpretive Statements Sinus tachycardia Electronically Signed On 01-19-2025 18:41:52 PDT by Kimani Pitts Please click the below link to view image of tracing.
== END 2025-01-16 16:22 | disposition home or self-care (01) ==
LOC: ER 14:49
DX: F41.1 Generalized anxiety disorder (principal); R51.9 Headache, unspecified; R00.0 Tachycardia, unspecified; F41.9 Anxiety disorder, unspecified; J45.909 Unspecified asthma, uncomplicated; I10 Essential (primary) hypertension; F10.90 Alcohol use, unspecified, uncomplicated; Z90.49 Acquired absence of other specified parts of digestive tract; Z88.0 Allergy status to penicillin; Z79.899 Other long term (current) drug therapy; W01.0XXA Fall on same level from slipping, tripping and stumbling without subsequent striking against object, initial encounter; Y93.89 Activity, other specified; Y92.89 Other specified places as the place of occurrence of the external cause; Y99.8 Other external cause status; Y90.9 Presence of alcohol in blood, level not specified
CPT/HCPCS: 70450; 82947; 82962; 93005